=== PATIENT | male | born 1945 | race Caucasian/White ===

== ENCOUNTER 2017-04-10 12:24 | Emergency (ER) | payer OTHER ==
[~2017-04-10] VITALS: Ht 179.1 cm; Wt 110.9 kg
[2017-04-10 12:28] VITALS: BP 150/93; PULSE 78; RESP 22; O2SAT 97
--- NOTE | 2017-04-10 12:56 | ED.REPORT ---
HPI-Dyspnea / Wheezing Date of Service Apr 10, 2017 ED Provider: Dania Traore History of Present Illness: SOB building up over the last few weeks, feels fluid on his lungs[facility] Has an appointment for more imaging in the next few weeks. has o2 at home. OK at rest. pain in right ribs, worse over past day, nonradiating, worse w/ movement. Not taking anything for pain. on coumadin for a-fib Nursing Notes Stated Complaint: SHORTNESS OF BREATH Chief Complaint: Respiratory Distress Nursing Notes Reviewed: Yes Allergies: Coded Allergies: TAPE (Verified Allergy, Severe, 04/10/17) Scheduled Warfarin Sodium (Warfarin Sodium) 2.5 Mg Tablet 2.5 MG PO MON,THUR Warfarin Sodium (Warfarin Sodium) 5 Mg Tablet 5 MG PO MON,MON,MON,SAT,SUN General Time Seen by MD: 12:55 Chief Complaint Shortness of breath Hx Obtained From: Patient Sudden in Onset?: No Location: : Chest right Past Medical History Past Medical History has ling cancer stage 4. 04/10/2017 Reports: COPD, Cancer, Hypertension, Denies: Asthma, Coronary artery disease, Diabetes mellitus Past Surgical History left knee and right knee arthroscopy and right shoulder rotater cuff Smoking History Former Smoker (quit in 1977) Social History Alcohol Use: 1-3 per week Drug Use: Denies drug use Occupation lives by self, lives in a 1 story duplex, no stairs Ambulatory Status Independent Review of Systems Basic Review of Systems Eyes: Vision NL, No discharge Hematologic: No bleeding, No bruising Psychiatric: Normal thought content Physical Exam Initial Vital Signs Vital Signs (First) Date Time Temp Pulse Resp B/P Pulse Ox O2 Delivery O2 Flow Rate FiO2 04/10/17 12:28 36.7 78 22 150/93 97 Room Air Initial VS: Reviewed, Vital signs normal Head / Eyes: Atraumatic, Normocephalic, PERRL ENT: Mucous membranes moist, Conjunctiva normal, No scleral icterus Abdomen / GI: Soft, Non-tender, No guarding, No rebound, No distention Back: No CVA tenderness Lymphatic: No lymphadenopathy Extremities: Vascular intact, Neuro intact, No swelling, No tenderness Skin: Warm, Dry, No cyanosis Neurologic: Alert, Oriented, Nonfocal Psychiatric: Mood/affect normal, Behavior normal, Normal thought content General/Constitutional: Awake, Alert, No acute distress, Well appearing, Well developed, Well hydrated Neck: Atraumatic, Supple, No meningismus, Full range of motion, No adenopathy Respiratory / Chest: Atraumatic, Breath sounds NL, Breath sounds = bilat Cardiovascular: Heart rate NL, Regular rhythm, Heart sounds NL ENT: Atraumatic, Airway patent, Mucous membranes moist, Pharynx NL Abdomen: Atraumatic, Soft, Non-tender Lower Extremity / Pelvis / MS: Atraumatic, Inspection NL, Full range of motion Interpretation & Diagnostics Lab Results Interpretation Result Diagram: 04/10/17 1312 04/10/17 1312 Test 04/10/17 13:12 White Blood Count 6.7th/mm3 (3.8-10.1) Red Blood Count 4.62mil/mm3 (4.40-5.80) Hemoglobin 13.6g/dL (13.8-17.2) Hematocrit 40.7% (41.0-50.0) Mean Corpuscular Volume 88.1fL (81-100) Mean Corpuscular Hemoglobin 29.4pg (27.0-35.0) Mean Corpuscular Hemoglobin Concent 33.4% (32.0-37.0) Red Cell Distribution Width 14.2% (12.3-15.4) Platelet Count 239bil/L (150-400) Neutrophils (%) (Auto) 71.6% (40-74) Lymphocytes (%) (Auto) 13.0% (14-46) Monocytes (%) (Auto) 12.8% (4-12) Eosinophils (%) (Auto) 2.1% (0-5) Basophils (%) (Auto) 0.4% (0-3) Prothrombin Time 10.9sec (8.1-12.5) Prothromb Time International Ratio 1.02ratio Sodium Level 137mEq/L (134-144) Potassium Level 3.4mEq/L (3.5-5.2) Chloride Level 94mEq/L (97-108) Carbon Dioxide Level 27mmol/L (18-29) Blood Urea Nitrogen 33mg/dL (8-27) Creatinine 0.79mg/dL (0.76-1.27) Estimat Glomerular Filtration Rate 102mL/min (>59) Glucose Level 98mg/dL (60-99) Calcium Level 9.3mg/dL (8.5-10.1) Magnesium Level 1.8mg/dL (1.6-2.6) Total Bilirubin 0.5mg/dL (0.0-1.2) Aspartate Amino Transf (AST/SGOT) 76U/L (0-50) Alanine Aminotransferase (ALT/SGPT) 53U/L (0-44) Alkaline Phosphatase 70U/L (25-160) Troponin T < 0.010ug/L (0.0-0.011) Total Protein 8.8g/dL (6.4-8.4) Albumin 3.7g/dL (3.4-5.0) X-Ray Interpretation Xray Interpretation: PROCEDURE: X-RAY RIGHT DECUBITUS CHEST ([id number]) INDICATIONS: 71 year-old male with right basal pleural effusion. TECHNIQUE: Right lateral decubitus view of the chest was acquired. COMPARISON: [facility], CR, XR CHEST 2VW, 04/10/2017, 13:39. [facility], CR, XR CHEST 2VW, 03/21/2017, 14:40. FINDINGS: Surgical changes and devices: Right chest wall Port-A-Cath is again noted. Lungs and pleura: Previously noted basal right pleural effusion now layers dependently along the lateral aspect of the right hemithorax with decubitus positioning. Visualized left lung appears clear, except for lingular calcified granuloma. Mediastinum: Mediastinal contours appear normal. Heart size is normal. Bones and chest wall: No suspicious bony lesions. Overlying soft tissues appear unremarkable. IMPRESSION: Small to moderate basal right pleural effusion appears mobile on right lateral decubitus positioning. Dictated by: Janusz Muhammad M.D. on 04/10/2017 at 15:37 Approved by: Janusz Muhammad M.D. on 04/10/2017 at 15:38 Re-Eval/Medical Decision Med Decision/Clinical Course 71 year old male with stage 4 lung cancer presents to the ER for evualation of right side pain with effusion. Patient requesting drainiage and possible pig tail placement as was discussed at last drainage. Patient's respiratory status is fine at rest. Discussed with general surgery, as he is on coumadin, no surgery will happen this evening. General surgery suggests surgery and oncology discuss together. Dr. Sales is contacted. He will be seeing patient on Monday and set up any additional imaging and time for drainage and if pig tail placement is indicate, he will set it up. No sign of pneumonia Discharge & Departure Impression: Primary Impression: Pleural effusion Additional Impression: Lung cancer Laterality: right Disposition: Home Patient Instructions: Pleural Effusion (ED) Additional Instructions: Try to minimize your activity as much as possible. You can use dilaulid 2 mg every 2 to 4 hours as needed for pain. Please stop the coumadin this evening and Monday until you see Dr. Dominguez. He will handle arranging the tap of the lung. If you become worse in any way, return to the ER. I am so sorry you are1 having to go through this. Referrals: Mable Dominguez MD (PCP) EDSupervising Provider for APC: Ernesto Dalton MD Attending Statement Attending attestation: I saw this patient in conjunction with Dania NAVARRETE. I agree with the workup , evaluation, treatment and disposition. copies to: Mable Dominguez MD, Sue ARNP Apr 10, 2017 12:56 Simone Webster MD Apr 10, 2017 13:45 Ernesto Dalton MD Apr 10, 2017 16:21
[2017-04-10 13:03] VITALS: BP 120/64; PULSE 80; RESP 10; O2SAT 94
[2017-04-10] MEDS ORDERED: HYDROmorphone 0.5 mg/0.5 mL iSecure Syringe IVPUSH ONE (13:10)
[2017-04-10 13:17] LABS: BASOPHILS % (AUTO) 0.4 % (0-3); EOSINOPHILS % (AUTO) 2.1 % (0-5); MONOCYTES % (AUTO) 12.8 % (4-12); Mean Corpuscular Hemoglobin 29.4 pg (27.0-35.0); Mean Corpuscular Volume 88.1 fL (81-100); NEUTROPHILS % (AUTO) 71.6 % (40-74); Platelet Count 239 bil/L (150-400)
[2017-04-10 13:40] LABS: TROPONIN T < 0.010 ug/L (0.0-0.011)
[2017-04-10 13:51] LABS: Magnesium 1.8 mg/dL (1.6-2.6)
[2017-04-10 13:58] VITALS: BP 124/69; PULSE 74; RESP 18; O2SAT 95
--- NOTE | 2017-04-10 13:58 | DRSVH ---
PROCEDURE: X-RAY CHEST, TWO VIEWS ([id number]) INDICATIONS: cp, cough TECHNIQUE: 2 views of the chest were acquired. COMPARISON: 03/21/2017 FINDINGS: Surgical changes and devices: Right-sided port with tip overlying the distal SVC. Lungs and pleura: Pleural-parenchymal scarring at the right lung base. Calcified granuloma versus [place] over the left seventh anterior rib. No pneumothorax. Mediastinum: Mediastinal contours are normal. Heart size is normal. Bones and chest wall: No suspicious bony abnormalities. Soft tissues appear unremarkable. IMPRESSION: 1. Right lower lobe pleural-parenchymal scarring. Possibility of superimposed pneumonia cannot be exc luded. 2. Calcified granuloma versus bone island left lung base laterally. Dictated by: Shaka Varghese M.D. on 04/10/2017 at 13:53 Approved by: Shaka Varghese M.D. on 04/10/2017 at 13:56
[2017-04-10] MEDS ORDERED: HYDROmorphone 1 mg/mL Inj IVPUSH ONE (14:15)
[2017-04-10 15:39] VITALS: BP 141/95; RESP 12; O2SAT 96
--- NOTE | 2017-04-10 15:40 | DRSVH ---
PROCEDURE: X-RAY RIGHT DECUBITUS CHEST ([id number]) INDICATIONS: 71 year-old male with right basal pleural effusion. TECHNIQUE: Right lateral decubitus view of the chest was acquired. COMPARISON: [facility], CR, XR CHEST 2VW, 04/10/2017, 13:39. [facility], CR, XR CHEST 2VW, 03/21/2017, 14:40. FINDINGS: Surgical changes and devices: Right chest wall Port-A-Cath is again noted. Lungs and pleura: Previously noted basal right pleural effusion now layers dependently along the late ral aspect of the right hemithorax with decubitus positioning. Visualized left lung appears clear, ex cept for lingular calcified granuloma. Mediastinum: Mediastinal contours appear normal. Heart size is normal. Bones and chest wall: No suspicious bony lesions. Overlying soft tissues appear unremarkable. IMPRESSION: Small to moderate basal right pleural effusion appears mobile on right lateral decubitus positioning. Dictated by: Janusz Muhammad M.D. on 04/10/2017 at 15:37 Approved by: Janusz Muhammad M.D. on 04/10/2017 at 15:38
[2017-04-10] MEDS ORDERED: WARF5TAB7 PO (16:24)
[2017-04-10] MEDS ORDERED: WARF2.5T82 PO (16:24)
[2017-04-10 16:56] LABS: INR 1.02 ratio
[2017-04-10 17:20] VITALS: BP 126/69; PULSE 75; RESP 13; O2SAT 95
== END 2017-04-10 17:19 | disposition home or self-care (01) ==
LOC: SED 12:24
DX: J90 Pleural effusion, not elsewhere classified (principal); C34.91 Malignant neoplasm of unspecified part of right bronchus or lung; I10 Essential (primary) hypertension; J44.9 Chronic obstructive pulmonary disease, unspecified; Z79.01 Long term (current) use of anticoagulants; Z87.891 Personal history of nicotine dependence; Z91.048 Other nonmedicinal substance allergy status
CPT/HCPCS: 36415; 71020; 71035; 80053; 83735; 84484; 85025; 85610; 93005; 96374; 96376; 99285; J1170